=== PATIENT | female | born 1945 | race African-American/Black ===

== ENCOUNTER → 2016-08-03 | Outpatient (CLI) | payer MEDICARE, MEDICAID | END | disposition home or self-care (01) | LOC: MAMMO 07:19 | PROVIDERS: ATTEND Internal Medicine Gastroenterology | DX: Z12.31 Encounter for screening mammogram for malignant neoplasm of breast (principal) | CPT/HCPCS: G0202 ==

== ENCOUNTER 2016-09-13 19:20 | Emergency (ER) | payer MEDICARE, MEDICAID ==
[~2016-09-13] VITALS: Ht 152.4 cm; Wt 86.0 kg
[2016-09-13 19:25] VITALS: BP 147/80
[2016-09-13] MEDS ORDERED: BACITRACIN ZINC OINT UDPKT TOP ONE (21:15)
== END 2016-09-13 21:11 | disposition home or self-care (01) ==
LOC: ER 19:21
DX: S60.415A Abrasion of left ring finger, initial encounter (principal); W26.0XXA Contact with knife, initial encounter; Y93.89 Activity, other specified; Y99.8 Other external cause status; Y92.89 Other specified places as the place of occurrence of the external cause
CPT/HCPCS: 99282

== ENCOUNTER → 2017-07-22 | Outpatient (CLI) | payer MEDICARE, MEDICAID ==
[~2017-07-22] MED LIST: ASPI-1159 PO; ATOR20TA PO; VALS160T2 PO
== END | disposition home or self-care (01) ==
LOC: LAB 09:21
PROVIDERS: ATTEND Internal Medicine Cardiovascular Disease
DX: Z01.818 Encounter for other preprocedural examination (principal); E11.9 Type 2 diabetes mellitus without complications; I10 Essential (primary) hypertension; E66.01 Morbid (severe) obesity due to excess calories
CPT/HCPCS: 71045; 93005

== ENCOUNTER → 2017-07-23 | Outpatient (CLI) | payer MEDICARE, MEDICAID ==
[2017-07-23 07:49] LABS: BASOPHILS % 0.8 % (0.0-2.0); EOSINOPHILS % 2.4 % (0.0-5.0); HEMATOCRIT. 38.3 % (36.0-48.0); HEMOGLOBIN. 12.3 g/dL (12.0-16.0); LYMPHOCYTES % 37.2 % (20.0-50.0); MEAN CORPUSCULAR HEMOGLOBIN 26.9 pg (28.0-32.0); MEAN CORPUSCULAR VOLUME 83.6 fL (81.0-99.0); MEAN PLATELET VOLUME 7.3 fl (7.4-10.4); MONOCYTES % 9.4 % (2.0-8.0); NEUTROPHILS % 50.2 % (40.0-76.0); PLATELET 264 x1000/uL (130-400); RED BLOOD CELL COUNT 4.58 mill/uL (4.2-5.4); RED CELL DISTRIBUTION WIDTH 13.6 % (11.6-14.6)
[2017-07-23 07:54] LABS: PARTIAL THROMBOPLASTIN TIME 26.1 sec (23.4-31.0); PROTHROMBIN TIME 10.2 sec (9.4-11.6)
[2017-07-23 08:03] LABS: CHLORIDE 108 mEq/L (98-107)
== END | disposition home or self-care (01) ==
LOC: LAB 07:15
PROVIDERS: ATTEND Internal Medicine Gastroenterology
DX: I10 Essential (primary) hypertension (principal); E11.3311 Type 2 diabetes mellitus with moderate nonproliferative diabetic retinopathy with macular edema, right eye; E66.01 Morbid (severe) obesity due to excess calories; H26.8 Other specified cataract; Z79.01 Long term (current) use of anticoagulants
CPT/HCPCS: 36415; 80048; 85025; 85610; 85730

== ENCOUNTER → 2017-08-23 | Outpatient (CLI) | payer MEDICARE, MEDICAID | END | disposition home or self-care (01) | LOC: MAMMO 06:53 | PROVIDERS: ATTEND Internal Medicine Gastroenterology | DX: Z12.31 Encounter for screening mammogram for malignant neoplasm of breast (principal) | CPT/HCPCS: 77067 ==

== ENCOUNTER 2018-04-09 06:36 | Day surgery (SDC) | payer MEDICARE, MEDICAID ==
[~2018-04-09] VITALS: Ht 152.4 cm; Wt 86.2 kg
[2018-04-09 08:04] LABS: BASOPHILS % 0.8 % (0.0-2.0); EOSINOPHILS % 4.6 % (0.0-5.0); HEMOGLOBIN. 11.5 g/dL (12.0-16.0); LYMPHOCYTES % 35.3 % (20.0-50.0); MEAN CORPUSCULAR HEMOGLOBIN 27.1 pg (28.0-32.0); MEAN CORPUSCULAR VOLUME 82.4 fL (81.0-99.0); MEAN PLATELET VOLUME 7.4 fl (7.4-10.4); MONOCYTES % 13.1 % (2.0-8.0); NEUTROPHILS % 46.2 % (40.0-76.0); PLATELET 255 x1000/uL (130-400); RED BLOOD CELL COUNT 4.24 mill/uL (4.2-5.4); RED CELL DISTRIBUTION WIDTH 14.1 % (11.6-14.6)
[2018-04-09 08:06] LABS: INR 1.1; PARTIAL THROMBOPLASTIN TIME 28.1 sec (23.4-31.0); PROTHROMBIN TIME 10.7 sec (9.1-11.1)
[2018-04-09 08:08] LABS: CHLORIDE 107 mEq/L (98-107)
[2018-04-09] MEDS ORDERED: ASPI-1159 PO (08:09)
[2018-04-09] MEDS ORDERED: ATOR20TA PO (08:09)
[2018-04-09] MEDS ORDERED: VALS160T2 PO (08:09)
[2018-04-09 08:31] LABS: CLARITY URINE CLEAR (CLEAR); COLOR URINE YELLOW (YELLOW); KETONES URINE NEGATIVE (NEGATIVE); LEUKOCYTE ESTERASE URINE TRACE (NEGATIVE); NITRITE URINE NEGATIVE (NEGATIVE); OCCULT BLOOD URINE 2+ (NEGATIVE); PH URINE 5.5 (4.5-8.0); PROTEIN URINE NEGATIVE (NEGATIVE); SPECIFIC GRAVITY URINE 1.019 (1.005-1.030); UROBILINOGEN URINE 0.2 E.U./dL (0.2-1.0)
[2018-04-09] MEDS ORDERED: ONDANSETRON HCL 4MG/2ML INJ ONE (09:11)
[2018-04-09] MEDS ORDERED: METOCLOPRAMIDE HCL 10MG/2ML VIAL ONE (09:11)
[2018-04-09] MEDS ORDERED: MIDAZOLAM HCL 2 MG/2 ML VIAL ONE (09:11)
[2018-04-09] MEDS ORDERED: PHENYLEPHRINE HCL 10 MG/ML 1ML (IV VIAL) IV ONE (09:11)
[2018-04-09] MEDS ORDERED: SODIUM CHLORIDE 0.9% 10ML VIAL ONE (09:11)
[2018-04-09] MEDS ORDERED: SUCCINYLCHOLINE CHLORIDE 200MG/10ML IV ONE (09:11)
[2018-04-09] MEDS ORDERED: NEOSTIGMINE METHYLSULFATE 1MG/ML 10 ML VIAL ONE (09:11)
[2018-04-09] MEDS ORDERED: FENTANYL CITRATE/PF 50MCG/ML 2ML VIAL ONE (09:11)
[2018-04-09] MEDS ORDERED: ROCURONIUM BROMIDE 10MG/ML VIAL 5ML IV ONE (09:11)
[2018-04-09] MEDS ORDERED: PROPOFOL 200MG/20ML VIAL IV ONE (09:11)
[2018-04-09] MEDS ORDERED: CEFAZOLIN SODIUM 1000MG/VIAL ONE (09:11)
[2018-04-09] MEDS ORDERED: GLYCOPYRROLATE 0.2 MG/ML 2ML VIAL ONE (09:11)
[2018-04-09] MEDS ORDERED: EPHEDRINE SULFATE 50MG/ML VIAL ONE (09:11)
[2018-04-09] MEDS ORDERED: SODIUM CHLORIDE 0.9% 1,000 ML IV ONE (10:09)
[2018-04-09] MEDS ORDERED: MEPERIDINE HCL/PF 25MG/ML CPJ IV PRN (10:15)
[2018-04-09] MEDS ORDERED: HYDROMORPHONE HCL/PF 2MG/ML CPJ IV PRN (10:15)
[2018-04-09] MEDS ORDERED: ONDANSETRON HCL 4MG/2ML INJ IV PRN (10:15)
== END 2018-04-09 11:15 | disposition home or self-care (01) ==
LOC: OR 06:36
PROVIDERS: ATTEND Obstetrics & Gynecology Obstetrics
DX: N95.0 Postmenopausal bleeding (principal); I10 Essential (primary) hypertension; E78.00 Pure hypercholesterolemia, unspecified; K21.9 Gastro-esophageal reflux disease without esophagitis; E66.3 Overweight; M13.869 Other specified arthritis, unspecified knee; Z79.899 Other long term (current) drug therapy; Z79.82 Long term (current) use of aspirin; Z98.890 Other specified postprocedural states; Z88.2 Allergy status to sulfonamides; Z96.651 Presence of right artificial knee joint
CPT/HCPCS: 36415; 58558; 80048; 81003; 82962; 85025; 85610; 85730; 88305; 93005; A4216; J0330; J0690; J2250; J2370; J2405; J2710; J2765; J3010; J3490; J2704; J7120

== ENCOUNTER → 2018-09-24 | Outpatient (CLI) | payer MEDICARE, MEDICAID ==
[~2018-09-24] MED LIST changes: -ASPI-1159 PO; +ASPI-1393 PO; +BROM3DRO BOTHEYE; +CELE50CA PO; +DOCU-138 PO; +LINA145C PO; +LOSA100T32 PO; +OMEP40CA34 PO; +PREG100C PO; +ZET10 PO
[2018-09-24 07:29] LABS: BASOPHILS % 0.8 % (0.0-2.0); EOSINOPHILS % 3.3 % (0.0-5.0); HEMATOCRIT. 36.6 % (36.0-48.0); HEMOGLOBIN. 12.2 g/dL (12.0-16.0); LYMPHOCYTES % 41.4 % (20.0-50.0); MEAN CORPUSCULAR HEMOGLOBIN 27.6 pg (28.0-32.0); MEAN CORPUSCULAR VOLUME 82.6 fL (81.0-99.0); MEAN PLATELET VOLUME 7.8 fl (7.4-10.4); MONOCYTES % 10.8 % (2.0-8.0); NEUTROPHILS % 43.7 % (40.0-76.0); PLATELET 230 x1000/uL (130-400); RED BLOOD CELL COUNT 4.43 mill/uL (4.2-5.4); RED CELL DISTRIBUTION WIDTH 14.5 % (11.6-14.6)
[2018-09-24 07:32] LABS: PARTIAL THROMBOPLASTIN TIME 29.1 sec (23.4-31.0); PROTHROMBIN TIME 10.3 sec (9.6-11.0)
[2018-09-24 07:46] LABS: CHLORIDE 110 mEq/L (98-107)
[2018-09-25 07:34] LABS: CLARITY URINE CLEAR (CLEAR); COLOR URINE YELLOW (YELLOW); KETONES URINE NEGATIVE (NEGATIVE); LEUKOCYTE ESTERASE URINE NEGATIVE (NEGATIVE); NITRITE URINE NEGATIVE (NEGATIVE); OCCULT BLOOD URINE NEGATIVE (NEGATIVE); PH URINE 5.5 (4.5-8.0); PROTEIN URINE NEGATIVE (NEGATIVE); SPECIFIC GRAVITY URINE 1.027 (1.005-1.030); UROBILINOGEN URINE 0.2 E.U./dL (0.2-1.0)
[2018-09-26 08:18] LABS: *CREATININE RANDOM URINE 214.3 mg/dL (Not Estab.); MICROALBUMIN RANDOM URINE 9.2 ug/mL (Not Estab.)
== END | disposition home or self-care (01) ==
LOC: LAB 06:57
PROVIDERS: ATTEND Internal Medicine Gastroenterology
DX: Z01.818 Encounter for other preprocedural examination (principal); I10 Essential (primary) hypertension; K59.01 Slow transit constipation; E78.1 Pure hyperglyceridemia; E11.9 Type 2 diabetes mellitus without complications
CPT/HCPCS: 36415; 82043; 82570; 83036; 84443

== ENCOUNTER → 2018-09-25 | Outpatient (CLI) | payer MEDICARE, MEDICAID ==
[~2018-09-25] MED LIST changes: +ASPI-1159 PO; -ASPI-1393 PO; +LOSA100T14 PO; -LOSA100T32 PO
== END | disposition home or self-care (01) ==
LOC: RAD 07:01
PROVIDERS: ATTEND Internal Medicine Gastroenterology
DX: Z01.818 Encounter for other preprocedural examination (principal); I10 Essential (primary) hypertension
CPT/HCPCS: 71045

== ENCOUNTER 2018-10-07 05:26 | Inpatient (IN) | payer MEDICARE, MEDICAID ==
[~2018-10-07] VITALS: Ht 149.9 cm; Wt 86.2 kg
[~2018-10-07 05:26] MED LIST changes: -BROM3DRO BOTHEYE; -CELE50CA PO; -DOCU-138 PO; -LINA145C PO; -LOSA100T14 PO; -OMEP40CA34 PO; -PREG100C PO; -ZET10 PO
[2018-10-07 06:13] LABS: BASOPHILS % 0.7 % (0.0-2.0); EOSINOPHILS % 2.3 % (0.0-5.0); HEMATOCRIT. 40.3 % (36.0-48.0); HEMOGLOBIN. 13.1 g/dL (12.0-16.0); LYMPHOCYTES % 29.4 % (20.0-50.0); MEAN CORPUSCULAR HEMOGLOBIN 27.3 pg (28.0-32.0); MEAN PLATELET VOLUME 7.8 fl (7.4-10.4); MONOCYTES % 8.8 % (2.0-8.0); NEUTROPHILS % 58.8 % (40.0-76.0); PLATELET 267 x1000/uL (130-400); RED CELL DISTRIBUTION WIDTH 14.3 % (11.6-14.6)
[2018-10-07 06:17] LABS: CHLORIDE 109 mEq/L (98-107)
[2018-10-07 06:28] LABS: CLARITY URINE CLEAR (CLEAR); COLOR URINE YELLOW (YELLOW); KETONES URINE NEGATIVE (NEGATIVE); LEUKOCYTE ESTERASE URINE NEGATIVE (NEGATIVE); NITRITE URINE NEGATIVE (NEGATIVE); OCCULT BLOOD URINE 1+ (NEGATIVE); PROTEIN URINE NEGATIVE (NEGATIVE); SPECIFIC GRAVITY URINE 1.016 (1.005-1.030); UROBILINOGEN URINE 0.2 E.U./dL (0.2-1.0)
[2018-10-07] MEDS ORDERED: TRANEXAMIC ACID 1,000 MG/10 ML IV STA (06:44)
[2018-10-07] MEDS ORDERED: TRANEXAMIC ACID 1,000 MG in SODIUM CHLORIDE 0.9% 100 ML IV SCH (07:00)
[2018-10-07] MEDS ORDERED: BUPIVACAINE/EPINEPH/PF 0.25%/0.0005 10ML ONE ×2 (07:01→09:29)
[2018-10-07] MEDS ORDERED: BACITRACIN 50,000 UNITS/VIAL ONE (07:01)
[2018-10-07] MEDS ORDERED: VANCOMYCIN HCL 500 MG/VIAL ONE (07:05)
[2018-10-07] MEDS ORDERED: GENTAMICIN SULF 40MG/ML 2ML VIAL ONE (07:05)
[2018-10-07] MEDS ORDERED: LACTATED RINGERS 1,000 ML IV SCH (07:30)
[2018-10-07] MEDS ORDERED: MIDAZOLAM HCL 2 MG/2 ML VIAL ONE (07:43)
[2018-10-07] MEDS ORDERED: FENTANYL CITRATE/PF 50MCG/ML 2ML VIAL ONE (07:43)
[2018-10-07] MEDS ORDERED: PROPOFOL 200MG/20ML VIAL IV ONE (07:43)
[2018-10-07] MEDS ORDERED: BUPIVACAINE HCL 0.5% (5MG/ML) 50ML ONE (07:59)
[2018-10-07] MEDS ORDERED: DOCU-138 PO (08:15)
[2018-10-07] MEDS ORDERED: OMEP40CA34 PO (08:15)
[2018-10-07] MEDS ORDERED: PREG100C PO (08:15)
[2018-10-07] MEDS ORDERED: ZET10 PO (08:15)
[2018-10-07] MEDS ORDERED: HYDROMORPHONE HCL/PF 2MG/ML CPJ IV PRN (08:15)
[2018-10-07] MEDS ORDERED: CELE50CA PO (08:15)
[2018-10-07] MEDS ORDERED: ONDANSETRON HCL 4MG/2ML INJ IV PRN ×2 (08:15→08:45)
[2018-10-07] MEDS ORDERED: LINA145C PO (08:15)
[2018-10-07] MEDS ORDERED: LOSA100T14 PO (08:17)
[2018-10-07] MEDS ORDERED: BROM3DRO BOTHEYE (08:17)
[2018-10-07] MEDS ORDERED: HYDROCODONE/ACETAMINOPHEN 5/325MG TABLET PO PRN ×2 (08:45→16:45)
[2018-10-07] MEDS ORDERED: MORPHINE SULFATE 4 MG/ML CPJ (NOT FOR IM USE) IV PRN ×2 (08:45)
[2018-10-07] MEDS ORDERED: ZOLPIDEM TARTRATE 5MG TABLET PO PRN (08:45)
[2018-10-07] MEDS ORDERED: MAGNESIUM HYDROXIDE 400MG/5ML 30ML UDC PO PRN (08:45)
[2018-10-07] MEDS ORDERED: MORPHINE SULFATE/PF 1MG/ML 10ML AMP ONE (09:30)
[2018-10-07] MEDS ORDERED: BACITRACIN 15GM TUBE TOP ONE (09:34)
[2018-10-07] MEDS ORDERED: HYDROMORPHONE HCL/PF 2MG/ML (OR) ONE (09:53)
[2018-10-07] MEDS ORDERED: GLYCOPYRROLATE 0.2 MG/ML 2ML VIAL ONE (09:57)
[2018-10-07] MEDS ORDERED: ALBUMIN HUMAN 12.5G/250ML (5%) IV ONE (11:37)
[2018-10-07] MEDS ORDERED: DIPHENHYDRAMINE 25MG CAPSULE PO PRN (14:00)
[2018-10-07] MEDS: HYDROMORPHONE HCL/PF 2MG/ML CPJ IV PRN ×4 (14:16→14:57)
[2018-10-07] MEDS ORDERED: KETOROLAC 15MG/ML VIAL IV NR (14:30)
[2018-10-07] MEDS ORDERED: KETOROLAC 30MG/ML VIAL ONE (14:35)
[2018-10-07 16:00] VITALS: BP 147/69
[2018-10-07 16:08] VITALS: BP 137/69
[2018-10-07] MEDS: DOCUSATE SODIUM 100MG CAPSULE PO SCH ×2 (17:00→18:06)
[2018-10-07] MEDS: SODIUM CHLORIDE 0.45% 1,000 ML IV SCH (17:00)
[2018-10-07] MEDS: CELECOXIB 200MG CAPSULE PO SCH ×2 (18:05→21:55)
[2018-10-07] MEDS: CEFAZOLIN 2,000 MG in DEXT 5% WATER 100 ML IV SCH (18:05)
[2018-10-07 20:00] VITALS: BP 132/60
[2018-10-07] MEDS: FAMOTIDINE 20MG TABLET PO SCH (21:54)
[2018-10-07] MEDS: ACETAMINOPHEN 500MG TABLET PO SCH (21:55)
[2018-10-07] MEDS ORDERED: POTASSIUM CHLORIDE 20MEQ TABLET SR PO NR (23:00)
[2018-10-07] MEDS: KETOROLAC 15MG/ML VIAL IV SCH (23:06)
[2018-10-08] VITALS: BP 114/43
[2018-10-08] MEDS: CEFAZOLIN 2,000 MG in DEXT 5% WATER 100 ML IV SCH (02:28)
[2018-10-08] MEDS: KETOROLAC 15MG/ML VIAL IV SCH ×4 (02:42→21:11)
[2018-10-08 04:00] VITALS: BP 105/47
[2018-10-08] MEDS: ACETAMINOPHEN 325MG TABLET PO PRN ×2 (04:21→17:29)
[2018-10-08 06:31] LABS: BASOPHILS % 0.1 % (0.0-2.0); CHLORIDE 113 mEq/L (98-107); HEMATOCRIT. 24.8 % (36.0-48.0); HEMOGLOBIN. 8.4 g/dL (12.0-16.0); LYMPHOCYTES % 11.4 % (20.0-50.0); MEAN CORPUSCULAR HEMOGLOBIN 28.5 pg (28.0-32.0); MEAN CORPUSCULAR VOLUME 84.3 fL (81.0-99.0); MEAN PLATELET VOLUME 7.6 fl (7.4-10.4); MONOCYTES % 10.8 % (2.0-8.0); NEUTROPHILS % 77.7 % (40.0-76.0); PLATELET 147 x1000/uL (130-400); RED BLOOD CELL COUNT 2.95 mill/uL (4.2-5.4); RED CELL DISTRIBUTION WIDTH 14.6 % (11.6-14.6)
[2018-10-08] MEDS: ACETAMINOPHEN 500MG TABLET PO SCH ×3 (06:41→23:00)
[2018-10-08] MEDS: SODIUM CHLORIDE 0.45% 1,000 ML IV SCH (06:42)
[2018-10-08 08:00] VITALS: BP 97/41
[2018-10-08] MEDS: CELECOXIB 200MG CAPSULE PO SCH ×2 (08:54→21:12)
[2018-10-08] MEDS: DOCUSATE SODIUM 100MG CAPSULE PO SCH ×2 (08:54→17:00)
[2018-10-08] MEDS: ENOXAPARIN 40MG/0.4ML SYR SUBCUT SCH (08:55)
[2018-10-08 12:00] VITALS: BP 91/39
[2018-10-08 16:00] VITALS: BP 93/39
[2018-10-08 20:00] VITALS: BP 106/51
[2018-10-08] MEDS: FAMOTIDINE 20MG TABLET PO SCH (21:12)
[2018-10-09] VITALS (7 sets, daily range): BP systolic 104–144; BP diastolic 46–73
[2018-10-09] MEDS: KETOROLAC 15MG/ML VIAL IV SCH ×4 (03:46→20:11)
[2018-10-09] MEDS: SODIUM CHLORIDE 0.45% 1,000 ML IV SCH ×2 (03:59→09:00)
[2018-10-09] MEDS: ACETAMINOPHEN 500MG TABLET PO SCH ×3 (06:19→21:39)
[2018-10-09 06:29] LABS: BASOPHILS % 0.3 % (0.0-2.0); EOSINOPHILS % 2.3 % (0.0-5.0); HEMATOCRIT. 22.9 % (36.0-48.0); HEMOGLOBIN. 7.7 g/dL (12.0-16.0); LYMPHOCYTES % 15.2 % (20.0-50.0); MEAN CORPUSCULAR HEMOGLOBIN 28.8 pg (28.0-32.0); MEAN CORPUSCULAR VOLUME 85.5 fL (81.0-99.0); MEAN PLATELET VOLUME 8.4 fl (7.4-10.4); MONOCYTES % 7.5 % (2.0-8.0); NEUTROPHILS % 74.7 % (40.0-76.0); PLATELET 131 x1000/uL (130-400); RED BLOOD CELL COUNT 2.68 mill/uL (4.2-5.4); RED CELL DISTRIBUTION WIDTH 14.7 % (11.6-14.6)
[2018-10-09 06:53] LABS: CHLORIDE 114 mEq/L (98-107)
[2018-10-09] MEDS: DOCUSATE SODIUM 100MG CAPSULE PO SCH ×2 (09:00→16:11)
[2018-10-09] MEDS: CELECOXIB 200MG CAPSULE PO SCH ×2 (09:38→20:08)
[2018-10-09] MEDS: ENOXAPARIN 40MG/0.4ML SYR SUBCUT SCH (09:38)
[2018-10-09] MEDS: FAMOTIDINE 20MG TABLET PO SCH (20:08)
[2018-10-10 00:10] VITALS: BP 120/62
[2018-10-10] MEDS: KETOROLAC 15MG/ML VIAL IV SCH ×2 (03:06→09:26)
[2018-10-10 04:00] VITALS: BP 134/67
[2018-10-10] MEDS: ACETAMINOPHEN 500MG TABLET PO SCH (05:58)
[2018-10-10 06:07] LABS: BASOPHILS % 0.2 % (0.0-2.0); EOSINOPHILS % 4.5 % (0.0-5.0); HEMATOCRIT. 25.5 % (36.0-48.0); HEMOGLOBIN. 8.6 g/dL (12.0-16.0); LYMPHOCYTES % 11.2 % (20.0-50.0); MEAN CORPUSCULAR HEMOGLOBIN 28.8 pg (28.0-32.0); MEAN CORPUSCULAR VOLUME 85.5 fL (81.0-99.0); MEAN PLATELET VOLUME 8.5 fl (7.4-10.4); MONOCYTES % 6.9 % (2.0-8.0); NEUTROPHILS % 77.2 % (40.0-76.0); PLATELET 138 x1000/uL (130-400); RED BLOOD CELL COUNT 2.98 mill/uL (4.2-5.4); RED CELL DISTRIBUTION WIDTH 14.6 % (11.6-14.6)
[2018-10-10 06:48] LABS: CHLORIDE 113 mEq/L (98-107)
[2018-10-10 08:00] VITALS: BP 124/52
[2018-10-10] MEDS: DOCUSATE SODIUM 100MG CAPSULE PO SCH (09:00)
[2018-10-10] MEDS: ENOXAPARIN 40MG/0.4ML SYR SUBCUT SCH (09:26)
[2018-10-10] MEDS: CELECOXIB 200MG CAPSULE PO SCH (09:26)
[2018-10-10 12:00] VITALS: BP 127/79
[2018-10-10 12:26] VITALS: BP 127/79
== END 2018-10-10 12:57 | disposition home health service (06) | DRG 470 ==
LOC: OR 05:26 → 6EST 05:27
PROVIDERS: ADMIT Orthopaedic Surgery; ATTEND Orthopaedic Surgery
PROC: 0SR901A Replacement of Right Hip Joint with Metal Synthetic Substitute, Uncemented, Open Approach (ICD-10-PCS; principal; 2018-10-07)
PROC: 30233N1 Transfusion of Nonautologous Red Blood Cells into Peripheral Vein, Percutaneous Approach (ICD-10-PCS; 2018-10-07)
DX: M16.11 Unilateral primary osteoarthritis, right hip (principal); D62 Acute posthemorrhagic anemia; Z96.651 Presence of right artificial knee joint; M65.9 Synovitis and tenosynovitis, unspecified; E66.9 Obesity, unspecified; E78.5 Hyperlipidemia, unspecified; I10 Essential (primary) hypertension; H26.9 Unspecified cataract; R63.4 Abnormal weight loss; Q65.89 Other specified congenital deformities of hip; Z79.82 Long term (current) use of aspirin; Z68.38 Body mass index [BMI] 38.0-38.9, adult; Z88.2 Allergy status to sulfonamides; Z88.8 Allergy status to other drugs, medicaments and biological substances
CPT/HCPCS: 36415; 73501; 73502; 80048; 86850; 86900; 86920; 88305; 88311; 93970; 97110; 97116; 97162; 97166; 97530; 97535; C1776; C1893; J0171; J0690; J1170; J1580; J1650; J1885; J2250; J2274; J2405; J2704; J3010; J3370; J3490; J7050; J7060; L1830; P9016; P9041

== ENCOUNTER 2019-06-15 23:03 | Emergency (ER) | payer MEDICARE, MEDICAID ==
[~2019-06-15] VITALS: Ht 152.4 cm; Wt 85.9 kg
[~2019-06-15 23:03] MED LIST changes: -ASPI-1159 PO; +BROM3DRO BOTHEYE; +CELE50CA PO; +DOCU-138 PO; +EZET10TA13 PO; +LINA145C PO; +LOSA100T32 PO; +OMEP40CA12 PO; +PREG100C PO
[2019-06-15 23:24] VITALS: BP 136/69
== END 2019-06-16 00:55 | disposition left against medical advice (07) ==
LOC: ER 23:03
DX: M79.673 Pain in unspecified foot (principal); Z53.21 Procedure and treatment not carried out due to patient leaving prior to being seen by health care provider

== ENCOUNTER → 2019-07-15 | Outpatient (CLI) | payer MEDICARE, MEDICAID | END | disposition home or self-care (01) | LOC: MAMMO 07:41 | PROVIDERS: ATTEND Internal Medicine Gastroenterology | DX: Z12.31 Encounter for screening mammogram for malignant neoplasm of breast (principal) | CPT/HCPCS: 77067 ==

== ENCOUNTER → 2020-07-18 | Outpatient (CLI) | payer MEDICARE, MEDICAID | END | disposition home or self-care (01) | LOC: LAB 07:31 | PROVIDERS: ATTEND Internal Medicine Gastroenterology | DX: Z01.812 Encounter for preprocedural laboratory examination (principal); Z20.822 Contact with and (suspected) exposure to COVID-19 | CPT/HCPCS: 87426 ==

== ENCOUNTER → 2020-07-19 | Outpatient (CLI) | payer MEDICARE, MEDICAID | END | disposition home or self-care (01) | LOC: MAMMO 08:06 | PROVIDERS: ATTEND Internal Medicine Gastroenterology | DX: Z12.31 Encounter for screening mammogram for malignant neoplasm of breast (principal) | CPT/HCPCS: 77067 ==

== ENCOUNTER → 2020-07-25 | Outpatient (CLI) | payer MEDICARE, MEDICAID | END | disposition home or self-care (01) | LOC: LAB 07:24 | PROVIDERS: ATTEND Internal Medicine Gastroenterology | DX: Z20.822 Contact with and (suspected) exposure to COVID-19 (principal) | CPT/HCPCS: 87426 ==

== ENCOUNTER → 2020-07-26 | Outpatient (CLI) | payer MEDICARE, MEDICAID | END | disposition home or self-care (01) | LOC: RAD 07:08 | PROVIDERS: ATTEND Internal Medicine Gastroenterology | DX: R92.2 Inconclusive mammogram (principal); R92.1 Mammographic calcification found on diagnostic imaging of breast | CPT/HCPCS: 76641; 77065 ==